=== PATIENT | male | born 1965 | race Caucasian/White ===

== ENCOUNTER 2017-01-25 13:54 | Emergency (ER) | payer OTHER ==
[2017-01-25 14:02] VITALS: TEMP 97.3
[2017-01-25] MEDS ORDERED: NS 1,000 ML IV ONE (14:21)
--- NOTE | 2017-01-25 14:25 | EDPHY ---
H & P Stated Complaint: RODRIGUEZ-left eye area and back of head-several weeks-sent by Dr Infante. - Personal History Current Tetanus/Diphtheria Vaccine: Unsure Current Tetanus Diphtheria and Acellular Pertussis (TDAP): Unsure - Medical/Surgical History Hx Asthma: No Hx Chronic Respiratory Disease: No Hx Diabetes: No Hx Cardiac Disease: No Hx Renal Disease: No Hx Cirrhosis: No Hx Alcoholism: No Hx HIV/AIDS: No Hx Splenectomy or Spleen Trauma: No Other PMH: vasectomy. - Social History Smoking Status: Never smoked Time Seen by Provider: 01/25/17 14:06 HPI/ROS: Chief complaint: Headache History of present illness: This is a 51-year-old male who presents to the emergency department for evaluation of a headache. Patient reports the onset of headache approximately 2 weeks ago while engaging in sexual intercourse. Describes a mild headache but does wax and wane in intensity. It affects him around his left eye in the back of his head. He has use [id number] ibuprofen which has had minimal effect. He did see a neurologist today who recommended he comes to the emergency department for further evaluation and care. Patient denies other associated signs or symptoms including no fevers, no cold symptoms, no history of trauma, no neurologic symptoms beyond the headache including no paresthesias, no weakness or paralysis no bowel or bladder dysfunction. Review of systems: A 10 point review of systems was obtained and other than described above was negative (Demarco Bear) - Physical Exam Exam: General Appearance: Alert, nontoxic. Eyes: Pupils equal and round no pallor or injection. EOM intact. ENT, Mouth: Mucous membranes moist. Respiratory: There are no retractions, lungs are clear to auscultation. Cardiovascular: Regular rate and rhythm. Gastrointestinal: Abdomen is soft and nontender, no masses, bowel sounds normal. Neurological: Alert and oriented x4. Cranial nerves 2-12 grossly intact. Strength and sensation intact and symmetrical. No pronator drift. Cerebellar testing intact using finger to nose and heel to jimenez. Patient ambulating well. Skin: Warm and dry, no rashes. Musculoskeletal: Neck is supple nontender. Extremities are symmetrical, full range of motion. Psychiatric: Patient is oriented X 3, there is no agitation. (Demarco Bear) Constitutional: Initial Vital Signs Temperature (C) 36.3 C 01/25/17 13:58 Heart Rate 61 01/25/17 13:58 Respiratory Rate 16 01/25/17 13:58 Blood Pressure 120/74 01/25/17 13:58 O2 Sat (%) 94 01/25/17 13:58 O2 Delivery Mode Room Air Allergies/Adverse Reactions: No Known Allergies Allergy (Unverified 01/25/17 14:01) Home Medications: Medication Instructions Recorded NK [No Known Home Meds] 01/25/17 Medical Decision Making - Diagnostics Imaging: CT of the head and CTA of the head and neck are negative for acute findings ( Demarco Bear) Procedures: Procedure: Lumbar puncture. Indication: Headache After verbal informed consent from patient explaining the risks including infection, bleeding, and neurologic damage, a lumbar puncture was performed after the patient was prepped and draped in the usual fashion. Patient was placed in sitting position. The back was anesthetized with 1% lidocaine. Successful on first attempt. Approximately 4 cc of clear fluid was obtained. Opening pressure was not obtained. There were no complications. The fluid sent to the lab by recruiting internship. The patient was instructed to lay on his stomach for 30 minutes. The procedure was performed by myself. (Dago Monroy) ED Course/Re-evaluation: Patient seen in conjunction with my secondary supervising physician Dr. Dago Monroy. Patient is sent to the emergency department by his neurologist, Dr. Michelle Infante for evaluation of a headache. I have spoken with Dr. Infante directly on the phone. She is requesting a CT of the head and a CTA of the head and neck. This is performed and negative. She has further requesting an LP be performed. Dr. Monroy has discussed this with the patient who would like to proceed. Care of patient is turned over to Dr. Monroy pending LP procedure and results. (Demarco Bear) Differential Diagnosis: Included but not limited to cluster headache, migraine headache, tension headache, chronic daily headache, intracranial bleed, intracranial mass, meningitis (Demarco Bear) Other Provider: Patient is well appearing. Completed lumbar puncture. Verbal consent given. Possible complications discussed. Significant other in the room. Patient tolerated procedure well. His CSF is below the threshold of concern for intracranial hemorrhage. Did have a bloody tap with clearance of the red blood cells. This was discussed the patient and his significant other. They are happy and eager to go home. They declined further workup or testing and follow up with her neurologist Dr. Infante. (Dago Monroy) - Data Points Laboratory Results: 01/25/17 01/25/17 01/25/17 17:09 16:55 14:30 POC Hgb 16.7 gm/dL gm/dL (14.5-17.3) POC Hct 49 % % (42.8-50.6) POC Sodium 143 mEq/L mEq/L (134-144) POC Potassium 3.9 mEq/L mEq/L (3.3-5.0) POC Chloride 104 mEq/L mEq/L (96-108) POC BUN 14 mg/dL mg/dL (7-23) POC Creatinine 1.0 mg/dL mg/dL (0.8-1.5) POC Glucose 96 mg/dL mg/dL (70-100) CSF Tube Number 4 1 CSF Appearance CLEAR CLEAR (CLEAR) (CLEAR) CSF Color COLORLESS COLORLESS (COLORLESS) (COLORLESS) CSF Supernatant COLORLESS COLORLESS (COLORLESS) (COLORLESS) CSF WBC 2 /mm3 /mm3 2 /mm3 /mm3 (0-5) (0-5) CSF RBC 4 /mm3 H /mm3 152 /mm3 H /mm3 (0-0) (0-0) CSF Glucose 48 mg/dL L mg/dL (50-75) CSF Total Protein 32 mg/dL mg/dL (12-60) Microbiology Results: MICROBIOLOGY 01/25/17 16:55 Cerebral Spinal Fluid Gram Stain - Final Medications Given: Discontinued Medications Sodium Chloride (Ns) 1,000 mls @ 0 mls/hr IV ONCE ONE PRN Reason: Wide Open Stop: 01/25/17 14:22 Last Admin: 01/25/17 14:54 Dose: 1,000 mls Point of Care Test Results: 01/25/17 14:30 POC Sodium 143 POC Potassium 3.9 POC Chloride 104 POC BUN 14 POC Creatinine 1.0 POC Glucose 96 Departure - Departure Disposition: Home, Routine, Self-Care Clinical Impression: Headache Qualifiers: Headache type: unspecified Headache chronicity pattern: acute headache Intractability: not intractable Qualified Code(s): R51 - Headache Condition: Good Instructions: Acute Headache (ED) Additional Instructions: Follow-up with neurology this week for continued evaluation and care If symptoms worsen or new symptoms develop return to the emergency room for recheck Referrals: Klaus Bowers MD [Primary Care Provider] - As per Instructions Michelle Infante DO [Non Staff and Non MD] - As per Instructions
[2017-01-25] MEDS ORDERED: IOPAMIDOL (ISOVUE 370) 100 ML BTL IV ONE (14:33)
[2017-01-25 17:36] LABS: PROTEIN, CSF 32 mg/dL (12-60)
[2017-01-25 17:38] LABS: CSF APPEARANCE CLEAR (CLEAR); CSF COLOR COLORLESS (COLORLESS); CSF SUPERNATANT COLORLESS (COLORLESS); WBC, CSF 2 /mm3 (0-5)
[2017-01-25 18:11] LABS: CSF APPEARANCE CLEAR (CLEAR); CSF COLOR COLORLESS (COLORLESS); CSF SUPERNATANT COLORLESS (COLORLESS); WBC, CSF 2 /mm3 (0-5)
[2017-01-25 18:39] VITALS: BP 125/76; PULSE 52; RESP 18; O2SAT 96
== END 2017-01-25 18:39 | disposition home or self-care (01) ==
PROC: 009U3ZX Drainage of Spinal Canal, Percutaneous Approach, Diagnostic (ICD-10-PCS; principal; 2017-01-25)
DX: R51 Headache (principal)
CPT/HCPCS: 82947-QW; Q9967

== ENCOUNTER 2017-01-26 10:29 | Emergency (ER) | payer OTHER ==
[2017-01-26 10:37] VITALS: O2SAT 97
--- NOTE | 2017-01-26 11:11 | EDPHY ---
H & P Time Seen by Provider: 01/26/17 10:43 HPI/ROS: Chief complaint. Headache HPI. 51-year-old male had workup yesterday in the emergency department for 2 weeks of headache that began after sexual activity. The workup was for subarachnoid hemorrhage. Had normal imaging studies and a normal LP. Today returns with headache behind his eyes and neck muscles feeling stiff. Some nausea. It is positional and worse with standing and much better with lying down. No other complaints ROS Constitutional. no fever/chills, no weakness Eyes. no problems with vision ENT. no sore throat, no nasal drainage Cardiovascular. no chest pain Respiratory. no shortness of breath, no cough Abdominal. no abdominal pain, no nausea/vomiting, no diarrhea . no problems urinating MS. no calf pain/swelling, no neck/back pain, no joint pain Skin. no rash Lymph. no swollen glands Neuro. Positional headache Past Medical/Surgical History: Vasectomy Social History: , non smoker, no alcohol Smoking Status: Never smoked Physical Exam: General Appearance: Alert well-developed male mild distress vital signs are stable Eyes: Pupils equal and round no pallor or injection. ENT, Mouth: Mucous membranes are moist. Respiratory: There are no retractions, lungs are clear to auscultation. Cardiovascular: Regular rate and rhythm. Gastrointestinal: Abdomen is soft and nontender, no masses, bowel sounds normal. Neurological: Awake and alert, sensory and motor exams grossly normal. Skin: Warm and dry, no rashes. Musculoskeletal: Neck is supple nontender. Extremities symmetrical, full range of motion. Psychiatric: Patient is oriented X 3, there is no agitation. Constitutional: Initial Vital Signs Temperature (C) 36.4 C 01/26/17 10:30 Heart Rate 63 01/26/17 10:30 Respiratory Rate 18 01/26/17 10:30 Blood Pressure 128/89 H 01/26/17 10:30 O2 Sat (%) 97 01/26/17 10:30 O2 Delivery Mode Room Air Allergies/Adverse Reactions: No Known Allergies Allergy (Verified 01/26/17 10:33) Home Medications: Medication Instructions Recorded NK [No Known Home Meds] 01/25/17 Medical Decision Making Procedures: IV normal saline patient given 1 L ED Course/Re-evaluation: I consulted and discussed case with Dr. Driscoll, anesthesia, who will see the patient for evaluation for blood patch Dr. Driscoll has performed blood patch Re-evaluation 1:05 p.m. patient feels well. Feels well enough to go home. He is offered medication to go home but he feels ibuprofen will be enough Differential Diagnosis: This is likely post lumbar puncture headache. He had workup yesterday for subarachnoid hemorrhage including the lumbar puncture. All workup was normal. I do not think the patient has meningitis - Data Points Laboratory Results: Laboratory Results 01/26/17 11:30 01/26/17 11:30 01/26/17 01/26/17 01/26/17 11:30 11:30 11:30 WBC 6.42 10^3/uL 10^3/uL (3.80-9.50) RBC 5.14 10^6/uL 10^6/uL (4.40-6.38) Hgb 16.5 g/dL g/dL (13.7-17.5) Hct 46.1 % % (40.0-51.0) MCV 89.7 fL fL (81.5-99.8) MCH 32.1 pg pg (27.9-34.1) MCHC 35.8 g/dL g/dL (32.4-36.7) RDW 12.1 % % (11.5-15.2) Plt Count 177 10^3/uL 10^3/uL (150-400) MPV 10.2 fL fL (8.7-11.7) Neut % (Auto) 79.5 % H % (39.3-74.2) Lymph % (Auto) 12.6 % L % (15.0-45.0) [place] % (Auto) 4.8 % % (4.5-13.0) Eos % (Auto) 2.3 % % (0.6-7.6) Baso % (Auto) 0.5 % % (0.3-1.7) Nucleat RBC Rel Count 0.0 % % (0.0-0.2) Absolute Neuts (auto) 5.10 10^3/uL 10^3/uL (1.70-6.50) Absolute Lymphs (auto) 0.81 10^3/uL L 10^3/uL (1.00-3.00) Absolute Monos (auto) 0.31 10^3/uL 10^3/uL (0.30-0.80) Absolute Eos (auto) 0.15 10^3/uL 10^3/uL (0.03-0.40) Absolute Basos (auto) 0.03 10^3/uL 10^3/uL (0.02-0.10) Absolute Nucleated RBC 0.00 10^3/uL 10^3/uL (0-0.01) Immature Gran % 0.3 % % (0.0-1.1) Immature Gran # 0.02 10^3/uL 10^3/uL (0.00-0.10) PT 13.4 SEC SEC (12.0-15.0) INR 1.03 (0.83-1.16) APTT 28.5 SEC SEC (23.0-38.0) Sodium 139 mEq/L mEq/L (134-144) Potassium 4.3 mEq/L mEq/L (3.5-5.2) Chloride 106 mEq/L mEq/L (97-110) Carbon Dioxide 23 mEq/l mEq/l (22-31) Anion Gap 10 mEq/L mEq/L (8-16) BUN 15 mg/dL mg/dL (7-23) Creatinine 0.8 mg/dL mg/dL (0.7-1.3) Estimated GFR > 60 Glucose 94 mg/dL mg/dL (70-100) Calcium 9.3 mg/dL mg/dL (8.5-10.4) Medications Given: Discontinued Medications Sodium Chloride (Ns) 1,000 mls @ 0 mls/hr IV ONCE ONE PRN Reason: Wide Open Stop: 01/26/17 11:24 Last Admin: 01/26/17 12:00 Dose: 1,000 mls Departure - Departure Disposition: Home, Routine, Self-Care Clinical Impression: Post lumbar puncture headache Condition: Good Instructions: Lumbar Puncture (ED) Additional Instructions: Easy activity. Drink plenty of fluids. Ibuprofen 600 mg every 6 hours as needed for headache. Return for worsening headache, fever, vomiting. Referrals: Klaus Bowers MD [Primary Care Provider] - 1 day, if not improved
[2017-01-26] MEDS ORDERED: NS 1,000 ML IV ONE (11:23)
[2017-01-26 11:46] LABS: % IMMATURE GRANULYOCYTES 0.3 % (0.0-1.1); ABSOLUTE IMMATURE GRANULOCYTES 0.02 10^3/uL (0.00-0.10); ADD DIFF? NO; ADD MORPH? NO; ADD SCAN? NO; ATYPICAL LYMPHOCYTE FLAG 0 (0-99); FRAGMENT RBC FLAG 0 (0-99); HEMATOCRIT 46.1 % (40.0-51.0); HEMOGLOBIN 16.5 g/dL (13.7-17.5); LEFT SHIFT FLG 0 (0-99); LIPEMIA HEMOLYSIS FLAG 90 (0-99); MEAN CELL HEMOGLOBIN 32.1 pg (27.9-34.1); MEAN CELL HEMOGLOBIN CONCENTR. 35.8 g/dL (32.4-36.7); MEAN CELL VOLUME 89.7 fL (81.5-99.8); MEAN PLATELET VOLUME 10.2 fL (8.7-11.7); PLATELET CLUMPS FLAG 0 (0-99); PLATELET COUNT 177 10^3/uL (150-400); RED BLOOD CELL COUNT 5.14 10^6/uL (4.40-6.38); RED CELL DISTRIBUTION WIDTH 12.1 % (11.5-15.2)
[2017-01-26 11:59] LABS: APTT 28.5 SEC (23.0-38.0); INR 1.03 (0.83-1.16); PROTIME(PATIENT) 13.4 SEC (12.0-15.0)
[2017-01-26 12:09] LABS: ANION GAP 10 mEq/L (8-16); CALCIUM 9.3 mg/dL (8.5-10.4); CARBON DIOXIDE 23 mEq/l (22-31); CHLORIDE 106 mEq/L (97-110); CREATININE 0.8 mg/dL (0.7-1.3); GLOMERULAR FILTRATION RATE > 60; GLUCOSE 94 mg/dL (70-100); POTASSIUM 4.3 mEq/L (3.5-5.2); SODIUM 139 mEq/L (134-144)
[2017-01-26 13:44] VITALS: BP 124/84; PULSE 61; RESP 16; TEMP 98.4
== END 2017-01-26 13:30 | disposition home or self-care (01) ==
DX: G97.1 Other reaction to spinal and lumbar puncture (principal)